=== PATIENT | male | born 1950 | race Caucasian/White ===

== ENCOUNTER 2018-06-03 22:02 | Inpatient (IN) | payer MEDICARE ==
[~2018-06-03] VITALS: Ht 180.3 cm; Wt 79.5 kg
[2018-06-03 20:00] VITALS: BP 126/70
[2018-06-03] MEDS ORDERED: SINGULAIR10 MG PO (23:34)
[2018-06-03] MEDS ORDERED: HYDROCODON-ACE1 EA10 PO (23:36)
[2018-06-03] MEDS ORDERED: TEMAZEPAM30 MG PO (23:37)
[2018-06-03] MEDS ORDERED: ELIQUIS5 MG PO (23:37)
[2018-06-03] MEDS ORDERED: MOBIC7.5 MG PO (23:38)
[2018-06-03] MEDS ORDERED: ACCUPRIL20 MG PO (23:38)
[2018-06-03] MEDS ORDERED: LIPITOR40 MG PO (23:39)
[2018-06-03] MEDS ORDERED: OMEPRAZOLE20 M1 PO (23:40)
[2018-06-03] MEDS ORDERED: BAYER CHEWABLE81 MG PO (23:41)
[2018-06-03] MEDS ORDERED: FLUTICASONE PRO16 GM NASAL (23:42)
[2018-06-03] MEDS ORDERED: CLARITIN 10 MG10 MG PO (23:43)
[2018-06-03] MEDS ORDERED: FISH OIL 1,0001 CA1 PO (23:44)
[2018-06-04 00:24] VITALS: BP 126/70; BMI 24.4
--- NOTE | 2018-06-04 02:04 | NUR ---
Patient arrived from [facility] ER at 22:50, CALM AND COOPERATIVE, HERE FOR SUICIDE ATTEMPT USING PILLS AND ETOH, CODE WORD IS NORA, CODE STATUS IS FULL CODE, VSS, DENIES S.I. AT THIS TIME STATES THAT IT WAS JUST A MISSUNDERSTANDING, CONTRACTS FOR SAFETY, CONSENTS ARE SIGNED, PHYSICIAN IS AWARE OF ARRIVAL, WILL CONTINUE TO MONITOR.
[2018-06-04 06:07] LABS: BASOPHILS 0.7 % (0-2); HEMATOCRIT 36.2 % (42.0-54.0); IMMATURE GRANULOCYTES 0.1 % (0-5); LYMPHOCYTES 29.7 % (15-50); MCH 30.6 pg (26.0-34.0); MCHC 33.1 g/dL (31.0-37.0); MCV 92.3 fL (80.0-100.0); MEAN PLATELET VOLUME 9.6 fL (7.4-10.4); MONOCYTES 9.5 % (2-11); PLATELET COUNT 287 10x3/uL (130-400); RBC 3.92 10x6/uL (4.20-6.10); RDW 14.5 % (11.5-14.5); WBC 6.8 10x3/uL (4.8-10.8)
[2018-06-04 06:35] LABS: ALBUMIN 2.8 g/dL (3.4-5.0); ANION GAP 12.3 mmol/L (8-16); BILIRUBIN - TOTAL 0.44 mg/dL (0.2-1.3); CALCIUM 8.3 mg/dL (8.5-10.1); CARBON DIOXIDE 26.1 mmol/L (21.0-32.0); CHOL - HDL RATIO 2.5 ratio (2.3-4.9); CREATININE - SERUM 1.1 mg/dL (0.6-1.3); LDL-HDL RATIO 1.1 ratio (1.5-3.5); POTASSIUM - SERUM 4.4 mmol/L (3.5-5.1); PROTEIN - SERUM 6.1 g/dL (6.4-8.2); THYROID STIMULATING HORMONE 1.16 uIU/mL (0.36-3.74)
--- NOTE | 2018-06-04 07:30 | NUR ---
B) The patient denies depression and denies S.I. he says "What happened was I took a couple of my sleeping pills and then I drank a glass of wine and then I must have typed something on my phone, it's all a big mistake." He ambulates independently, he is oriented to person, place, and time. I) Provide prescribed meds. R) The patient is compliant with meds and unit milieu. P) Continue POC.
[2018-06-04 08:27] VITALS: BP 126/69
--- NOTE | 2018-06-04 08:59 | NUR ---
The patient is able to void urine for lab, did take to lab for ua and c&s.
--- NOTE | 2018-06-04 09:30 | NUR ---
The patient denies S.I. and contracts for no self harm.
[2018-06-04 09:40] LABS: APPEARANCE CLEAR (CLEAR); BILIRUBIN NEGATIVE (NEGATIVE); COLOR YELLOW (YELLOW); GLUCOSE NEGATIVE (NEGATIVE); KETONE NEGATIVE (NEGATIVE); NITRITE NEGATIVE (NEGATIVE); PROTEIN TRACE mg/dL (NEGATIVE); SPECIFIC GRAVITY 1.015 (1.005-1.020); UROBILINOGEN NORMAL (NORMAL)
--- NOTE | 2018-06-04 10:00 | NUR ---
The patient asked "So when do we need to get to go back to our rooms?" Did explain that "everyone has to stay in the day room so that the staff can keep an eye on everyone." His significant other called to check on him. The patient says he wants to go back home.
[2018-06-04 10:13] VITALS: BMI 24.4
--- NOTE | 2018-06-04 12:33 | NUR ---
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
[2018-06-05 01:57] VITALS: BP 141/81
--- NOTE | 2018-06-05 02:44 | NUR ---
B) Patient is alert and oriented to person, place and time, calm and cooperative, guarded at times, I) Administered scheduled medications as ordered, monitored for safety R) Mediation compliant, no S.I. noted, P) Continue plan of care.
[2018-06-05 10:03] VITALS: BP 134/82
--- NOTE | 2018-06-05 16:14 | NUR ---
FAMILY HERE TO VISIT.
--- NOTE | 2018-06-05 18:08 | NUR ---
ALERT AND ORIENTED.DENIES THOUGHTS OF HARMING SELF.WILL TALK WITH STAFF IF THOUGHTS OF HARMING SELF.AMBULARES WITH STEADY GAIT.COMPLIANT WITH STAFF AND MEDS.WILL CONTINUE WITH PLAN OF CARE,MONITOR FOR CHANGES AND SAFETY.
--- NOTE | 2018-06-05 22:13 | NUR ---
RECEIVED IN DAYROOM. RESTING IN RECLINER WHILE WATCHING TV. CALM AND COOPERATIVE WITH CARE AND ASSESSMENT. DENIES THOUGHTS OF SELF HARM. REDIRECT AND REORIENT NEEDED. RESTING IN BED WITH EYES CLOSED AT THIS TIME. CONTINUE PLAN OF CARE.
[2018-06-05 22:53] VITALS: BP 148/76
--- NOTE | 2018-06-06 07:30 | NUR ---
PT IS ALERT AND ORIENTED TO PERSON, PLACE, TIME, CALM AND COOPERATIVE, GUARDED AT TIMES. PRESCRIBED MEDS PROVIDED. MEDICATION COMPLIANT. NO SI NOTED OR VOICED. WILL CONTINUE TO MONITOR Q 15 MINUTES FOR SAFETY. WILL CPOC.
[2018-06-06 08:00] VITALS: BP 156/79
[2018-06-06 10:28] VITALS: Ht 180.3 cm; Wt 79.5 kg
--- NOTE | 2018-06-06 15:29 | PN ---
PATIENT:EBONI GOULD MEDICAL RECORD: [id number] LOCATION:[facility] ADMISSION DATE: 06/03/18 PROGRESS NOTE DATE OF SERVICE: 06/05/2018 SUBJECTIVE: The patient's case was discussed with staff. He has no new complaint. OBJECTIVE: The patient denies intent to harm himself or others. He generally is tolerating his initial dose of Effexor well. He did not eat yesterday and only ate a little bit today. He clearly looks depressed, but says that he is not. When asked about the food, he says he is not a big eater and does not like the food here. ASSESSMENT: No change in diagnoses. PLAN: I am going to increase the dose of the patient's Effexor slightly. He is denying any thoughts of harming himself. TRANSINT:[id number] Voice Confirmation ID: [id number] DOCUMENT ID: [id number] PORSCHE RAMOS MD at 1529 CC: [id number] DICTATION DATE: 06/05/18 1159 CLASSIFICATION AND TREATMENT DIRECTOR: 06/05/18 1213 ADM IN [facility] [address] [place] [address]
[2018-06-06 20:03] VITALS: BP 149/71
--- NOTE | 2018-06-06 21:30 | NUR ---
RECEIVED IN DAYROOM. SITTING IN RECLINER WHILE WATCHING TV. CALM AND COOPERATIVE WITH CARE AND ASSESSMENT. DENIES THOUGHTS OF SELF HARM. ENCOURAGE TO EXPRESS NEEDS. REDIRECT AND REORIENT NEEDED. RESTING IN BED WITH EYES CLOSED AT THIS TIME. CONTINUE PLAN OF CARE.
[2018-06-07 06:14] LABS: VITAMIN D 25 HYDROXY 33.2 ng/mL (30.0-100.0)
[2018-06-07 07:28] LABS: RAPID PLASMA REAGIN Non Reactive (Non Reactive)
[2018-06-07 08:00] VITALS: BP 145/83
--- NOTE | 2018-06-07 09:30 | NUR ---
RECEIVED IN DAYROOM, CALM AND COOPERATIVE WITH ASSESSMENT AND CARE. HE SITS AWAY FROM PEERS WATCHING TV QUIETLY. PROVIDE PRESCRIBED MEDS. COMPLIANT WITH MEDICATIONS. FALL PRECAUTIONS MAINTAINED. CONTINUE PLAN OF CARE.
[2018-06-07 10:20] LABS: FOLATE (FOLIC ACID) - SERUM >20.0 ng/mL (>3.0)
--- NOTE | 2018-06-07 12:02 | PN ---
PATIENT:EBONI GOULD MEDICAL RECORD: [id number] LOCATION:[facility] ADMISSION DATE: 06/03/18 PROGRESS NOTE DATE OF SERVICE: 06/06/2018 SUBJECTIVE: The patient's case was discussed with staff. He has no new complaint. OBJECTIVE: The patient is in good behavioral control. He has limited insight about his condition. He is still not eating. He denies that he wants to hurt himself. ASSESSMENT: No change in diagnoses. PLAN: Current medicines have been reviewed and will be maintained. Long-term prognosis is guarded. TRANSINT:[id number] Voice Confirmation ID: [id number] DOCUMENT ID: [id number] PORSCHE RAMOS MD at 1202 CC: [id number] DICTATION DATE: 06/06/18 1611 WAXER: 06/06/18 2111 ADM IN [facility] [address] [place] [id number]
--- NOTE | 2018-06-07 12:02 | PSY ---
PATIENT NAME:EBONI GOULD MEDICAL RECORD: [id number] : 54 LOCATION:[facility] ADMISSION DATE: 06/03/18 ACCOUNT: [id number] PSYCHIATRIC EVALUATION DATE OF EVALUATION: 06/04/18 PSYCHIATRIC EVALUATION IDENTIFYING DATA: The patient is 68 years old and he is admitted to the hospital on a voluntary basis. CHIEF COMPLAINT: Suicide attempt. HISTORY OF PRESENT ILLNESS: The patient was admitted to the hospital here from the [facility] Emergency Room. He drank too large glasses of wine and took a half a bottle of Restoril. He also sent a text message to his girlfriend, a woman who has lived with him for the past 20 years, but was not at home at that time and told her that he was going to kill himself, that he loved her, and then also sent additional text messages saying that he wanted his brothers to be his pallbearers and that he wanted to be buried in a small cemetery near [place]. The girlfriend was actually on the unit. I interviewed her and she showed me the text messages, so there is no doubt what happened or at least what he did. This was done away from the patient, I did not let him know I had spoken to her. He told me that he made some casual comments about not wanting to live that he had only drank one small glass of wine, that he only took 2 pills of Restoril to try to get some sleep. He endorses numerous neurovegetative depressive symptoms. He also says he wants to go home. He denies psychotic symptoms. He denies thoughts of harming others. He says he is not drinking excessively, although he does have a history of doing so. PAST MEDICAL HISTORY: Significant for macular degeneration, hypertension, atrial fibrillation, previous open-heart surgery at the age of 20 for valvular replacement, though I am not sure which valve. He also had a right nephrectomy at the age of 15. PAST PSYCHIATRIC HISTORY: Significant for alcoholism. He drank heavily through much of his adult life, but stopped doing so about 20 years ago. He still drinks on occasion and he certainly did last night. This is his first psychiatric hospitalization. ALLERGIES: No known drug allergies. CURRENT MEDICATIONS: Include Singulair, Eliquis, Accupril, Mobic, Lipitor, aspirin, Claritin, fish oil, and Fluconase. He also has been taking temazepam and hydrocodone. FAMILY HISTORY: Noncontributory. SOCIAL HISTORY: The patient has been , but . He has adult children who live within 100 miles of him. He has some contact with them. He did graduate from college. 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 He has been on disability since then. He has a long-term girlfriend who lives with him. He has no history of legal entanglements. MENTAL STATUS EXAMINATION: The patient is awake, alert and oriented to person, place as well as somewhat to time and situation. His mood is depressed. His affect is constricted. Thought processes are circumstantial. Memory, concentration, and abstraction abilities are mildly impaired and he denies any intent to harm himself or others as well as psychotic symptoms. ASSETS: Supportive family members. LIABILITIES: Limited insight. DIAGNOSTIC IMPRESSION: AXIS I: Major depression, moderate severity without psychotic features; alcohol abuse; sedative hypnotic abuse. AXIS II: Cluster B personality traits. AXIS III: Atrial fibrillation, hypertension, congestive heart failure. AXIS IV: Moderate stressors. AXIS V: Global assessment of functioning is 40. PLAN: At this time, the patient is admitted to the hospital secondary to a suicide attempt. He took at least a half a bottle of 30 mg Restoril. The girlfriend told me he had the bottle filled sometime this month and that it was empty. The patient told me he only took 2 pills. In addition to this, there were the text message notes about wanting to kill himself, saying goodbye to his family and giving instructions for what should be done afterward. Given these things and the fact that he is an elderly white male and medically ill, I think that this is an individual who meets many of the demographic predictors for suicide. I am going to keep him in the hospital. He is agreeing to stay voluntarily at this point, but I will place him on a hold and get a court order if necessary. I am going to treat him with antidepressant medications and we will observe him for alcohol withdrawal, although his live-in girlfriend of the past 20 years strongly insists that he does not drink excessively and does not feel that he could conceal doing so from her. She does say he occasionally will have a few drinks, but that it is not a longstanding problem. TRANSINT:[id number] Voice Confirmation ID: [id number] DOCUMENT ID: [id number] 06/07/2018 Edited to change to PSY H&P and claims support specialist error, dmm. PORSCHE RAMOS MD at 1202 CC: [id number] DICTATION DATE: 06/04/18 1406 ELECTROENCEPHALOGRAPH TECHNOLOGIST: 06/04/18 1438 ADM IN [facility] [address] [place] [address]
[2018-06-07] MEDS ORDERED: EFFEXOR37.5 MG PO (13:17)
--- NOTE | 2018-06-07 22:52 | NUR ---
RECEIVED IN DAYROOM. SOCIALIZING WITH STAFF AND PEERS. CALM AND COOPERATIVE WITH CARE AND ASSESSMENT. DENIES THOUGHTS OF SELF HARM. REDIRECT AND REORIENT NEEDED. RESTING IN BED WITH EYES CLOSED AT THIS TIME. CONTINUE PLAN OF CARE.
[2018-06-07 23:36] VITALS: BP 162/104
[2018-06-08 07:50] VITALS: BP 130/84
--- NOTE | 2018-06-08 08:30 | NUR ---
REPORT RECEIVED AND CARE ASSUMED. ALERT AND ORIENTED X 4. DENIES S.I. PRESCRIBED MEDICATIONS GIVEN. COMPLIAENT WITH MEDS. REDIRECT AND REORIENT NEEDED. MONITOR FOR SAFETY. CONTINUE PLAN OF CARE.
--- NOTE | 2018-06-08 09:17 | NUR ---
SW SPOKE WITH PT AND HE STATED HE DOES NOT HAVE ANY THOUGHTS OF SUICIDE AND IT WAS A BIG MISTAKE. HE REPORTED FEELING BETTER AND REPORTED DEPRESSION BEING LESS. PT REFUSED TO GO TO OUTPATIENT TREATMENT FOR DEPRESSION HE STATED HE WOULD NOT NEED ANY OF THAT. SW EXPLAINED PT WOULD NEED TO FOLLOW UP WITH PCP FOR MEDICATION MANAGEMENT. PT VERBALIZED UNDERSTANDING AND STATED HE WAS GRATEFUL FOR SERVICES.
--- NOTE | 2018-06-08 12:00 | NUR ---
DISCHARGE PACKET COMPLETED. BELONGINGS COLLECTED AND GIVEN TO PATIENT. LEFT HOSPTTAL VIA PRIVATE CAR WITH GIRLFRIEND, NATALIE.
--- NOTE | 2018-06-08 15:37 | PN ---
PATIENT:EBONI GOULD MEDICAL RECORD: [id number] LOCATION:[facility] [address] ADMISSION DATE: 06/03/18 PROGRESS NOTE DATE OF SERVICE: 06/07/2018 SUBJECTIVE: The patient's case was discussed with staff. He has no new complaint. OBJECTIVE: The patient denies intent to harm himself or others. He is tolerating his medicines well. He has a depressed mood, but no thoughts of self-harm. ASSESSMENT: No change in diagnoses. PLAN: Current medicines have been reviewed. The patient will be transitioned out of the hospital tomorrow if this level of improvement continues. TRANSINT:[id number] Voice Confirmation ID: [id number] DOCUMENT ID: [id number] PORSCHE RAMOS MD at 1537 CC: [id number] DICTATION DATE: 06/07/18 1316 VOLTAGE TESTER: 06/07/18 1412 DIS IN 06/08/18 [id number] [place] [address]
--- NOTE | 2018-06-14 15:21 | DS ---
PATIENT:EBONI GOULD :54 MEDICAL RECORD: [id number] DISCHARGE SUMMARY ADMISSION DATE: 06/03/18 DISCHARGE DATE: 06/08/18 IDENTIFYING DATA: The patient is 68 years old and he is admitted to the hospital on a voluntary basis secondary to a suicide attempt. The patient drank a large amount of wine and took half a bottle of Restoril. He then sent a text message to the woman he lives with and has been living with for 20 years and told her that he was going to kill himself, that he loved her and he gave her instructions about who would be his pall-bearers and where he should be buried. The patient subsequently was taken to the Emergency Room at another hospital locally and then transferred here for mental health treatment. HOSPITAL COURSE: The patient was admitted to the hospital and fully evaluated from both a medical, psychological, and social standpoint. He was treated with both antidepressant medications and was observed for evidence of alcohol withdrawal, which he did not have. He very much minimized his alcohol abuse and did not have any interest in treatment for that. He also did not have any interest in outpatient treatment for mental health issues but reluctantly agreed to at least a try it for a few visits of therapy. He insisted he was not suicidal throughout the course of his hospitalization and at his insistence was subsequently discharge. DISCHARGE DIAGNOSES: AXIS I: 1. Major depression, moderate severity without psychotic features. 2. Alcohol abuse. 3. Sedative and hypnotic abuse. AXIS II: Cluster B personality traits. AXIS III: Atrial fibrillation, hypertension, congestive heart failure. AXIS IV: Moderate stressors. AXIS V: Global Assessment Of Functioning is 50. PLAN: At the time of discharge, the patient was not acutely dangerous to himself or others. He had no thoughts of harming himself or others and had said so for days. He did not have any overt psychotic symptoms and was still displaying a depressed mood, but it had improved some. He was tolerating his antidepressant medicine well and agreed to take it. He did not have any interest in substance abuse treatment and was not showing any evidence of alcohol withdrawal. He was sleeping very well and this was without the use of hypnotics or alcohol, which he had been combining for a long time. Followup will be with his primary care physician along with his outpatient mental health appointment. TRANSINT:[id number] Voice Confirmation ID: [id number] DOCUMENT ID: [id number] DISCHARGE SUMMARY REPORT [id number] EBONI GOULD PETER MD at 1521 CC: [id number] DICTATION DATE: 06/13/18 141 COKE WORKER: 06/14/18 0047 DIS IN 06/08/18 [place] [id number] [place] [id number]
== END 2018-06-08 12:20 | disposition home or self-care (01) | DRG 885 ==
LOC: D.PSYCH 22:02
PROVIDERS: ADMIT Psychiatry & Neurology Psychiatry
DX: F33.1 Major depressive disorder, recurrent, moderate (principal); I48.91 Unspecified atrial fibrillation; F10.10 Alcohol abuse, uncomplicated; F13.10 Sedative, hypnotic or anxiolytic abuse, uncomplicated; I11.0 Hypertensive heart disease with heart failure; I50.9 Heart failure, unspecified; T42.4X2A Poisoning by benzodiazepines, intentional self-harm, initial encounter; G47.00 Insomnia, unspecified; E78.5 Hyperlipidemia, unspecified; J30.9 Allergic rhinitis, unspecified; K21.9 Gastro-esophageal reflux disease without esophagitis; H35.30 Unspecified macular degeneration; M54.5 Low back pain; M54.2 Cervicalgia; G89.29 Other chronic pain